=== PATIENT | male | born 1990 | race Caucasian/White ===

== ENCOUNTER 2017-04-18 22:47 | Emergency (ER) | payer BC ==
[~2017-04-18] VITALS: Ht 182.9 cm; Wt 94.5 kg
[~2017-04-18 22:47] MED LIST: BENADRYL25 MG PO; HYDROCODON-ACE1 EAC7 PO; IBUPROFEN600 MG PO; MOBIC15 MG PO
[2017-04-18 23:23] LABS: ADD MIUA? NO; BILIRUBIN NEGATIVE; BLOOD NEGATIVE; COLOR STRAW ((YELLOW)); GLUCOSE (STRIP) NEGATIVE; KETONES NEGATIVE; LEUKOCYTES NEGATIVE; NITRITE NEGATIVE; PROTEIN (STRIP) NEGATIVE; SPECIFIC GRAVITY 1.012 (1.000-1.030); UCUL ADDED? NO; UROBILINOGEN 0.2 MG/DL (0.2-1.0)
[2017-04-18 23:26] LABS: HEMATOCRIT 41.9 % (38.0-50.0); MCH 28.7 PG (29.0-34.0); MCHC 33.7 G/DL (30.0-36.0); MCV 85.3 FL (86-99); MEAN PLAT.VOLUME 9.6 uM^3 (9.0-12.4); PLATELET COUNT 242 K/uL (156-360); RBC DIS.WIDTH-CV 11.7 % (11.8-14.6); RBC DIS.WIDTH-SD 36.3 % (39-53); RED BLOOD COUNT 4.91 M/uL (4.00-5.50); WHITE BLOOD COUNT 13.2 K/uL (4.1-10.2)
[2017-04-18 23:40] LABS: CHLORIDE 105 mEq/L (99-109); POTASSIUM 4.7 mEq/L (3.7-5.4); SODIUM 141 mEq/L (136-147)
[2017-04-18 23:42] LABS: GLUCOSE 95 mg/dL (70-99)
[2017-04-18 23:43] LABS: ANION GAP 7 MEQ/L (2-14)
[2017-04-18 23:44] LABS: TOTAL BILIRUBIN 0.3 mg/dL (0.0-1.0)
[2017-04-18 23:45] LABS: ALKALINE PHOSPHATASE 89 IU/L (3-129)
[2017-04-18 23:46] LABS: GFR ESTIMATE (CALCULATED) > 59 mL/min/
[2017-04-18 23:47] LABS: UREA NITROGEN (BUN) 11 mg/dL (9-23)
[2017-04-19] MEDS ORDERED: NAPROXEN500 MG PO (00:59)
[2017-04-19] MEDS ORDERED: CIPRO500 MG PO (00:59)
[2017-04-19 01:44] VITALS: BP 109/61
== END 2017-04-19 01:46 | disposition home or self-care (01) ==
LOC: EME 22:47
DX: N45.1 Epididymitis (principal); Z87.891 Personal history of nicotine dependence
CPT/HCPCS: 76870; 80053; 81003; 85027; 99281; 99284; J0696

== ENCOUNTER 2017-10-11 13:56 | Inpatient (IN) | payer BC ==
[~2017-10-11] VITALS: Ht 182.9 cm; Wt 92.4 kg
[~2017-10-11 13:56] MED LIST changes: +CIPRO500 MG PO; +NAPROXEN500 MG PO
[2017-10-11 15:39] LABS: HEMATOCRIT 43.1 % (38.0-50.0); HEMOGLOBIN 14.7 G/DL (12.5-16.6); MCHC 34.1 G/DL (30.0-36.0); PLATELET COUNT 276 K/uL (156-360); RBC DIS.WIDTH-CV 11.9 % (11.8-14.6); RBC DIS.WIDTH-SD 36.4 % (39-53); RED BLOOD COUNT 5.07 M/uL (4.00-5.50); WHITE BLOOD COUNT 13.7 K/uL (4.1-10.2)
[2017-10-11 15:50] LABS: ALBUMIN 4.3 g/dL (3.2-4.8); CHLORIDE 107 mEq/L (99-109); POTASSIUM 3.9 mEq/L (3.7-5.4); SODIUM 139 mEq/L (136-147)
[2017-10-11 15:53] LABS: GLUCOSE 143 mg/dL (70-99)
[2017-10-11 15:54] LABS: TOTAL BILIRUBIN 0.5 mg/dL (0.0-1.0)
[2017-10-11 15:56] LABS: ALKALINE PHOSPHATASE 80 IU/L (3-129); CREATININE 0.8 mg/dL (0.6-1.3); GFR ESTIMATE (CALCULATED) > 59 mL/min/ (58.99-99999)
[2017-10-11 15:57] LABS: UREA NITROGEN (BUN) 10 mg/dL (9-23)
[2017-10-11 15:58] LABS: AST (GOT) 17 IU/L (2-34)
[2017-10-11 15:59] LABS: ALT (GPT) 23 IU/L (3-49)
[2017-10-11 16:00] LABS: LIPASE 14 U/L (1.0-51.0)
[2017-10-11 16:32] LABS: APPEARANCE CLEAR ((CLEAR)); BILIRUBIN NEGATIVE; BLOOD NEGATIVE; COLOR YELLOW ((YELLOW)); GLUCOSE (STRIP) NEGATIVE; KETONES NEGATIVE; LEUKOCYTES TRACE; NITRITE NEGATIVE; PROTEIN (STRIP) NEGATIVE; SPECIFIC GRAVITY 1.017 (1.000-1.030); UROBILINOGEN 0.2 MG/DL (0.2-1.0)
[2017-10-11 16:35] LABS: BACTERIA NONE SEEN /HPF; EPITHELIAL CELLS NONE SEEN /HPF; MUCUS TRACE /LPF; RED BLOOD CELLS 0-5 /HPF (0-5); UCUL ADDED? NO; WHITE BLOOD CELLS 0-5 /HPF (0-5)
[2017-10-11] MEDS ORDERED: ADVIL200 MG PO (20:01)
[2017-10-12 01:33] VITALS: BP 108/59
[2017-10-12 03:23] VITALS: BP 113/58
[2017-10-12 08:00] VITALS: BP 117/59
[2017-10-12 15:52] VITALS: BP 121/59
[2017-10-12 20:01] VITALS: BP 124/61
[2017-10-12 23:46] VITALS: BP 117/56
[2017-10-13 03:34] VITALS: BP 115/55
[2017-10-13 06:22] LABS: CHLORIDE 108 MEQ/L (99-109); CREATININE 0.8 MG/DL (0.6-1.3); GFR ESTIMATE (CALCULATED) > 59 mL/min/ (58.99-99999); POTASSIUM 4.3 MEQ/L (3.7-5.4); SODIUM 142 MEQ/L (136-147); UREA NITROGEN (BUN) 7 mg/dL (9-23)
[2017-10-13 06:23] LABS: GLUCOSE 106 mg/dL (70-99)
[2017-10-13 06:57] LABS: MCH 29.2 PG (29.0-34.0); MCHC 33.6 G/DL (30.0-36.0); MCV 86.7 FL (86-99); PLATELET COUNT 215 K/uL (156-360); RBC DIS.WIDTH-SD 38.1 % (39-53); RED BLOOD COUNT 4.15 M/uL (4.00-5.50)
[2017-10-13 07:13] LABS: HEMOGLOBIN 12.1 G/DL (12.5-16.6)
[2017-10-13 07:45] VITALS: BP 122/73
[2017-10-13 11:28] VITALS: BP 109/57
[2017-10-13 15:20] VITALS: BP 116/62
[2017-10-13 20:43] VITALS: BP 119/77
[2017-10-13] MEDS ORDERED: HYDROCODON-ACE1 EAC7 PO (20:53)
[2017-10-13] MEDS ORDERED: COLACE100 MG PO (20:53)
== END 2017-10-13 21:43 | disposition home or self-care (01) | DRG 343 ==
LOC: EME 13:56 → 4SOUTH 22:26 → EDOF 22:26 → ENRESERV 22:30 → 4SOUTH 10-12 01:12
PROVIDERS: Thoracic Surgery (Cardiothoracic Vascular Surgery)
PROC: 0DTJ0ZZ Resection of Appendix, Open Approach (ICD-10-PCS; principal; 2017-10-11)
DX: K35.80 Unspecified acute appendicitis (principal); F17.210 Nicotine dependence, cigarettes, uncomplicated
CPT/HCPCS: 74177; 80048; 80053; 81003; 83690; 85027; 87070; 87075; 87205; 88304; 99281; 99285; J0330; J1100; J1170; J1644; J1885; J2250; J2270; J2405; J2543; J3010; J7030; J7050; J7120